=== PATIENT | female | born 1990 | race Caucasian/White ===

== ENCOUNTER → 2021-01-10 | Outpatient (CLI) | payer OTHER ==
[2021-01-11 19:10] LABS: ANA INTERP Negative (.)
[2021-01-14 16:10] LABS: ALBUM 4.2 g/dL (2.9-4.4); ALPHA 1 0.2 g/dL (0.0-0.4); ALPHA 2 0.6 g/dL (0.4-1.0); BETA 1.1 g/dL (0.7-1.3); GAMMA 1.2 g/dL (0.4-1.8); PROTEIN TOTAL 7.2 g/dL (6.0-8.5); SPEP AG RATIO 1.4 (0.7-1.7)
[2021-01-22 14:06] LABS: ACHR MODULATING AB <12 % (0-20); ACHR STRIATIONAL AB Negative (Neg:<1:40)
== END ==
LOC: LAB 10:06
PROVIDERS: ATTEND Nurse Practitioner Family
DX: G43.009 Migraine without aura, not intractable, without status migrainosus (principal); R29.810 Facial weakness; G51.8 Other disorders of facial nerve
CPT/HCPCS: 36415; 82607; 83519; 84165; 84443; 85651; 86038; 86140; 86141; 86255; 84238

== ENCOUNTER → 2021-01-28 | Outpatient (CLI) | payer OTHER ==
[~2021-01-28] MED LIST: CETI10TA74 PO; FLUT1DIS IH; GADOTERATE 7.5 MMOL/15ML VIAL. IVP ONE; MONT10TA49 PO; SERT100T PO
--- NOTE | 2021-01-28 16:05 | KCIC ---
EXAM: Brain MRI with and without contrast. HISTORY: Migraine. Left facial weakness. Neuralgia. Family history of multiple sclerosis TECHNIQUE: Multiplanar, multisequence magnetic resonance imaging of the brain was performed prior to and following the administration of intravenous contrast. COMPARISON: Correlation is made with a cervical spine MRI obtained on the same date. FINDINGS: There is no restricted diffusion to suggest acute or subacute infarction. There is no susce ptibility effect to suggest hemorrhage. There is no mass effect or midline shift. There is no hydroce phalus. There is a single tiny focus of T2/FLAIR hyperintensity within the left frontal cerebral whit e matter along the anterior aspect of the external capsule. The orbits are unremarkable. There is paranasal sinus mucosal and mastoid air cells are clear. There are normal flow voids within the cerebral vessels. There is no suspicious calvarial lesion. There is no suspicious enhancing lesion. Thickening and there are small bilateral maxillary sinus and tiny sph enoid sinus mucous retention cysts. IMPRESSION: 1. No acute intracranial finding. 2. Single tiny focus of signal change within the left frontal white matter anterior to the external c apsule. This is nonspecific and can be seen with the reported history of chronic migraine headaches. The possibility of a single focus of chronic demyelination is not completely excluded. The age of the patient does not favor changes due to chronic small vessel disease. 3. Paranasal sinus disease. Electronically signed by: Corinna Bailey MD (01/28/2021 4:02 PM) [id number]
--- NOTE | 2021-01-28 16:07 | KCIC ---
EXAM: Cervical spine MRI without contrast. HISTORY: Migraine. Left facial weakness. Family history of multiple sclerosis. TECHNIQUE: Multiplanar, multisequence magnetic resonance imaging of the cervical spine was performed without contrast. COMPARISON: Correlation is made with a brain MRI obtained on the same date. FINDINGS: There is slight reversal cervical lordosis. There is no significant listhesis. The vertebra l bodies are normal in height. The disc spaces are preserved. There is a small suspected hemangioma w ithin the anterior inferior aspect of C2. No spinal cord lesion is seen. The posterior fossa is unrem arkable. No spinal cord lesion is seen. There is no significant foraminal or central canal stenosis. IMPRESSION: No acute finding. No cervical spinal cord lesion. No evidence of cervical foraminal or ce ntral canal stenosis. Electronically signed by: Corinna Bailey MD (01/28/2021 4:05 PM) [id number]
== END ==
LOC: KCIC MRI 14:23
PROVIDERS: ATTEND Nurse Practitioner Family
DX: G43.009 Migraine without aura, not intractable, without status migrainosus (principal); R29.810 Facial weakness; G51.8 Other disorders of facial nerve; I73.9 Peripheral vascular disease, unspecified; Z82.0 Family history of epilepsy and other diseases of the nervous system
CPT/HCPCS: 70553; 72141; A9575

== ENCOUNTER → 2021-02-26 | Outpatient (CLI) | payer OTHER ==
[~2021-02-26] MED LIST changes: -GADOTERATE 7.5 MMOL/15ML VIAL. IVP ONE; +LIDOCAINE 1% Multi-Dose 20 ML VIAL. INJ ONE; +LIDOCAINE 1% Multi-Dose 20 ML VIAL. ONE; +LIDOCAINE WITH 8.4% SOD BICARB 3 ML DISP.SYRIN. INJ ONE; +LIDOCAINE WITH 8.4% SOD BICARB 3 ML DISP.SYRIN. ONE
[2021-02-26 09:22] VITALS: BP 119/92
[2021-02-26 09:39] VITALS: BP 118/56
[2021-02-26 09:55] VITALS: BP 116/56
--- NOTE | 2021-02-26 10:24 | NUR ---
DISCHARGE INSTRUCTIONS REVIEWED AND ALL QUESTIONS ANSWERED.VSS. PT WHEELED TO OUTPATIENT, WHERE HER FAMILY MEMBER PICKED HER UP FOR HOME.
[2021-02-26 10:35] LABS: CSF CLARITY CLEAR; CSF COLOR COLORLESS; CSF RBC COUNT 0 /cmm (Not Established); CSF WBC COUNT 0 /cmm (Not Established)
[2021-02-26 10:47] LABS: CSF PROTEIN 41.8 mg/dL (15.0-45.0)
--- NOTE | 2021-02-26 16:43 | RAD ---
EXAM: Fluoroscopically guided lumbar puncture INDICATION: Left facial weakness, migraines. COMPARISON: None TECHNIQUE/FINDINGS: The purpose of the procedure and risks including infection, bleeding, allergic reaction, headaches, C SF leak, nerve root damage were discussed with the patient. Informed consent was obtained. A timeout was performed. The patient's recent MRI of the brain and C-spine was reviewed. After obtaining consent, a lateral view of the lumbar spine was obtained. Next, the patient was place d none on the fluoroscopy table with the L3-L4 level was marked, sterilized and draped. Superficial and deep soft tissues were anesthetized with 1% lidocaine. Utilizing fluoroscopic guidance, a 20-gau ge 1.5 inch spinal needle was advanced into the thecal sac. A total of 12 mL of clear CSF was obtaine d and sent to laboratory for analysis. Opening pressure was 21 cmH2O. Closing pressure of 13 cmH2O. At the end of the procedure, the needle was removed. The overlying skin was cleansed and covered wit h a bandaid. The patient tolerated the procedure well without immediate complications and was transfe rred to the recovery area for routine postprocedure monitoring. Total fluoroscopic time: 0.9 minutes. 2 fluoroscopic images acquired.. IMPRESSION: Technically successful fluoroscopically guided lumbar puncture. Electronically signed by: Doris Chen MD (02/26/2021 4:40 PM) [id number]
[2021-03-01 15:13] LABS: ALBUMIN,CSF 23 mg/dL (7-29); ALBUMIN,SERUM 4.7 g/dL (3.9-5.0); CSF IGG INDEX 0.5 (0.0-0.7); IGG,SERUM 931 mg/dL (586-1602)
== END | disposition home or self-care (01) ==
LOC: RAD 08:29
PROVIDERS: ATTEND Nurse Practitioner Family
DX: G43.909 Migraine, unspecified, not intractable, without status migrainosus (principal); R29.810 Facial weakness; Z79.899 Other long term (current) drug therapy; Z88.1 Allergy status to other antibiotic agents
CPT/HCPCS: 36415; 62328; 82787; 82945; 83916; 84157; 87071; 87075; 87102; 87252; 89051; J3490; 62270

== ENCOUNTER 2021-05-27 09:25 | Day surgery (SDC) | payer OTHER ==
[~2021-05-27] VITALS: Ht 157.5 cm; Wt 80.9 kg
[~2021-05-27 09:25] MED LIST changes: +HYDROmorphone 2 MG/ML VIAL IVP PRN; +IV RINGERS,LACTATED 1000ML 1,000 ML IV SCH; -LIDOCAINE 1% Multi-Dose 20 ML VIAL. INJ ONE; -LIDOCAINE 1% Multi-Dose 20 ML VIAL. ONE; -LIDOCAINE WITH 8.4% SOD BICARB 3 ML DISP.SYRIN. INJ ONE; -LIDOCAINE WITH 8.4% SOD BICARB 3 ML DISP.SYRIN. ONE; +MORPHINE SULFATE 2 MG/ML INJ. IVP PRN; +PROCHLORPERAZINE 10 MG/2 ML VIAL. IVP PRN; +fentaNYL PF VIAL 100 MCG/2 ML VIAL IVP PRN
[2021-05-27 10:04] VITALS: BP 151/79
[2021-05-27] MEDS ORDERED: AMIT50TA PO (10:10)
[2021-05-27] MEDS ORDERED: SUMA100T3 PO (10:11)
[2021-05-27] MEDS ORDERED: CYAN-25 PO (10:12)
[2021-05-27] MEDS ORDERED: ASPI-886 PO (10:13)
[2021-05-27] MEDS ORDERED: HYDR-2761 PO (10:24)
--- NOTE | 2021-05-27 10:27 | DISCH ---
DISCHARGE INSTRUCTIONS Condition on Discharge Condition on Discharge: Stable Activity After Discharge Activity Instructions for Disc: Avoid exertion Driving Instructions after Dis: Do not drive today Wound Incision Care Wound/Incision Care: Ice to area for comfort, Keep wound elevated Other wound/incision instructi: May change dressings for carpal tunnel postoperative day #3 keep splint for Follow-Up Follow up with: 14+ days ROBBIE BURROWS Jr. DO May 27, 2021 10:27
[2021-05-27] MEDS ORDERED: BUPIVACAINE MPF 0.25% 30 ML VIAL. ONE (10:41)
[2021-05-27] MEDS ORDERED: fentaNYL PF VIAL 100 MCG/2 ML VIAL ONE ×2 (11:13→12:11)
[2021-05-27] MEDS ORDERED: LIDOCAINE 1% PF 5 ML VIAL. ONE (11:14)
[2021-05-27] MEDS ORDERED: ONDANSETRON PF 4 MG/2 ML VIAL. ONE (11:14)
[2021-05-27] MEDS ORDERED: PROPOFOL 10 MG/ML (20ML) VIAL. IV ONE (11:14)
[2021-05-27] MEDS ORDERED: DEXAMETHASONE SOD PHOS 4 MG/ML VIAL ONE (11:14)
[2021-05-27] MEDS ORDERED: GLYCOPYRROLATE 1 MG/5 ML VIAL. ONE (11:24)
[2021-05-27] MEDS ORDERED: SEVOFLURANE 31 TO 60 MINUTES. IH ONE (11:24)
--- NOTE | 2021-05-27 11:38 | PDOC4 ---
OPERATIVE NOTE Date: Date: May 27, 2021 Pre-Op Diagnosis: Carpal tunnel syndrome right cubital tunnel syndrome right Post-Op Diagnosis: Same Procedure Performed: Carpal tunnel release right cubital tunnel release with ulnar nerve transposition right Surgeon: Nancy Anesthesia Type: General Blood Loss: 10 cc Specimans Obtained: None Findings: See dictation Complications: None ROBBIE BURROWS Jr., DO May 27, 2021 11:38
[2021-05-27] MEDS: fentaNYL PF VIAL 100 MCG/2 ML VIAL IVP PRN ×2 (12:00→13:10)
--- NOTE | 2021-05-27 12:11 | OP ---
DATE OF SURGERY: 05/27/2021 PREOPERATIVE DIAGNOSES: Carpal tunnel syndrome, right and cubital tunnel syndrome, right. POSTOPERATIVE DIAGNOSES: Carpal tunnel syndrome, right and cubital tunnel syndrome, right. PROCEDURE: Right carpal tunnel release as well as cubital tunnel release with ulnar nerve transposition, right elbow. SURGEON: Boy Cruz Jr, DO [employer] EXPERT: Seth Perera. ANESTHESIA: General. COMPLICATIONS: None. ESTIMATED BLOOD LOSS: 10 mL. DESCRIPTION OF PROCEDURE: The patient was taken to the operative suite, given a general anesthetic. Right upper extremity was then prepped and draped in a sterile fashion. Incision was made through skin and subcutaneous tissues down toward the palmar fascia. This was also incised along the area to expose the transverse carpal ligament. This was released in its entirety. This wound was then thoroughly irrigated and the wound was reapproximated in an interrupted fashion using 3-0 nylon. Attention was then directed to the ulnar nerve. Over the past, the ulnar nerve centered along the area of the medial epicondyle. Incision was made through skin and subcutaneous tissues down to the nerve itself, which was identified at a level just proximal to the medial epicondyle. After this was then subsequently released along the entire area proximally and distally, a small area of fascia was fashioned and held to the medial epicondyle and this fascia over the flexor musculature was used as a sling. The ulnar nerve was then transposed and noted to be free moving with no compression and the fascia was reapproximated to the subcutaneous tissue using 2-0 Vicryl in an interrupted fashion. Range of motion of the elbow revealed this to be fully released as well as in good repair at that point. This was then thoroughly irrigated. Superficial tissue and skin was reapproximated. Sterile dressing was applied along with a posterior splint. The patient was then taken from the operative bed to the postoperative bed, taken to the PACU in stable condition. BERNA DR: Willi TID: [id number]
[2021-05-27] MEDS ORDERED: HYDROcodone/APAP 5/325MG 1 TAB TABLET PO ONE (12:45)
[2021-05-27 13:10] VITALS: BP 117/49
== END 2021-05-27 14:30 | disposition home or self-care (01) ==
LOC: SURG 09:25
PROVIDERS: ATTEND Orthopaedic Surgery
DX: G56.01 Carpal tunnel syndrome, right upper limb (principal); G56.21 Lesion of ulnar nerve, right upper limb; J45.909 Unspecified asthma, uncomplicated; F32.9 Major depressive disorder, single episode, unspecified; Z86.73 Personal history of transient ischemic attack (TIA), and cerebral infarction without residual deficits; Z98.51 Tubal ligation status; Z98.890 Other specified postprocedural states; Z79.899 Other long term (current) drug therapy; Z87.891 Personal history of nicotine dependence; Z79.82 Long term (current) use of aspirin; Z88.1 Allergy status to other antibiotic agents; Z72.89 Other problems related to lifestyle
CPT/HCPCS: 64718; 64721; 81025; A4930; A6448; J0690; J1100; J2405; J2704; J3010; J3490; A4657; A6452